=== PATIENT | female | born 1990 | race African-American/Black ===

== ENCOUNTER 2022-06-07 08:54 | Emergency (ER) | payer SELFPAY ==
[2022-06-07 09:37] LABS: #Basophils 0.1 thou/uL (0.0-0.2); #Monocytes 0.3 thou/uL (0.11-0.59); #Neutrophils 2.9 thou/uL (1.40-6.50); %Basophils 1.1 % (0.0-1.0); %Eosinophils 0.9 % (0.0-10.0); %Lymphocytes 36.9 % (21.0-51.0); %Monocytes 5.5 % (0.0-10.0); %Neutrophils 55.7 % (42.0-75.0); Hemoglobin 12.3 g/dL (12.0-16.0); Mean Corpuscular HGB CONC 31.6 g/dL (32.0-36.0); Mean Corpuscular Hemoglobin 27.5 pg (27.0-31.0); Mean Corpuscular Volume 86.9 fl (78.0-98.0); Platelet Count 290 thou/uL (130-400); RBC Distribution Width 14.5 % (11.5-14.5); Red Blood Cell (RBC) Count 4.48 mill/uL (4.20-5.40); White Blood Cell (WBC) Count 5.3 thou/uL (4.8-10.8)
[2022-06-07 10:03] LABS: ALT (SGPT) 15 U/L (8-55); AST (SGOT) 17 U/L (5-34); Albumin 4.1 g/dL (3.5-5.0); Alkaline Phosphatase 117 U/L (40-110); Anion Gap 9 mmol/L (10-20); BUN (Urea Nitrogen) 16 mg/dL (7.0-18.7); Bilirubin, Total 0.3 mg/dL (0.2-1.2); Calc. Creatinine Clearance 0 mL/min (70-130); Calcium 9.4 mg/dL (7.8-10.44); Carbon Dioxide 24 mmol/L (22-29); Chloride 106 mmol/L (98-107); Estimated GFR 99; Globulin 2.8 g/dL (2.4-3.5); Glucose 92 mg/dL (70-105); Lipase 121 U/L (8-78); Protein, Total 6.9 g/dL (6.0-8.3); Sodium 135 mmol/L (136-145)
[2022-06-07 11:25] LABS: BHCG - Serum Negative (NEGATIVE); Pregs Control Background? CLEAR/WHITE (CLR/WHITE); Pregs Control Bar Appear? YES (CONTROL BAR)
== END 2022-06-07 12:00 | disposition home or self-care (01) ==
LOC: ERS 08:54
DX: R07.89 Other chest pain (principal); F17.210 Nicotine dependence, cigarettes, uncomplicated
CPT/HCPCS: 36415; 71045; 80053; 83690; 84484; 84703; 85025; 85379; 93005; 94760

== ENCOUNTER 2022-10-04 07:42 | Emergency (ER) | payer OTHER, SELFPAY ==
[2022-10-04 08:42] LABS: SARS-CoV-2 NAA Rapid Test Not Detected (NotDetected)
== END 2022-10-04 09:11 | disposition home or self-care (01) ==
LOC: ERS 07:42
DX: J06.9 Acute upper respiratory infection, unspecified (principal); J01.90 Acute sinusitis, unspecified; F17.210 Nicotine dependence, cigarettes, uncomplicated; Z20.822 Contact with and (suspected) exposure to COVID-19
CPT/HCPCS: 87081; 87430; 99283

== ENCOUNTER 2023-06-05 09:44 | Observation (INO) | payer SELFPAY ==
[2023-06-05 10:40] LABS: #Monocytes 0.4 thou/uL (0.11-0.59); #Neutrophils 2.4 thou/uL (1.40-6.50); %Basophils 0.9 % (0.0-1.0); %Lymphocytes 32.2 % (21.0-51.0); %Neutrophils 56.4 % (42.0-75.0); Hematocrit 41.6 % (36.0-47.0); Hemoglobin 13.6 g/dL (12.0-16.0); Mean Corpuscular HGB CONC 32.7 g/dL (32.0-36.0); Mean Corpuscular Hemoglobin 27.6 pg (27.0-31.0); Mean Corpuscular Volume 84.4 fl (78.0-98.0); Mean Platelet Volume 9.5 fL (7.4-10.4); Platelet Count 255 10x3/uL (130-400); RBC Distribution Width 15.4 % (11.5-14.5); Red Blood Cell (RBC) Count 4.93 mill/uL (4.20-5.40); White Blood Cell (WBC) Count 4.3 10x3/uL (4.8-10.8)
[2023-06-05] MEDS ORDERED: Ketorolac Tromethamine 30 MG/ML VIAL ONE (10:44)
[2023-06-05] MEDS ORDERED: Morphine 4 MG/ML VIAL ONE (10:44)
[2023-06-05 11:13] LABS: ALT (SGPT) 27 U/L (8-55); AST (SGOT) 27 U/L (5-34); Albumin 4.6 g/dL (3.5-5.0); Alkaline Phosphatase 115 U/L (40-110); Anion Gap 17 mmol/L (10-20); BUN (Urea Nitrogen) 11 mg/dL (7.0-18.7); Bilirubin, Total Less than 0.2 mg/dL (0.2-1.2); CK (CPK) 95 U/L (29-168); Calc. Creatinine Clearance 0 mL/min (70-130); Calcium 9.6 mg/dL (7.8-10.44); Carbon Dioxide 16 mmol/L (22-29); Chloride 111 mmol/L (98-107); Estimated GFR 116; Globulin 2.9 g/dL (2.4-3.5); Glucose 89 mg/dL (70-105); Potassium 4.4 mmol/L (3.5-5.1); Protein, Total 7.5 g/dL (6.0-8.3); Sodium 140 mmol/L (136-145)
[2023-06-05 11:45] LABS: Acetaminophen Less than 10 mcg/mL (10.0-30.0); Alcohol Less than 10.0 mg/dL (Less than 10); Salicylate Less than 8.0 mg/dL (15.0-30.0)
[2023-06-05] MEDS ORDERED: levETIRAcetam 500 MG/5 ML VIAL ONE (11:52)
[2023-06-05] MEDS ORDERED: LORazepam 2 MG/ML SYR.(CARPUJECT) ONE (11:52)
[2023-06-05] MEDS ORDERED: Ondansetron PF 4 MG/2 ML Vial IVP PRN (13:14)
[2023-06-05] MEDS ORDERED: Senokot S 8.6-50 MG TAB PO PRN (13:14)
[2023-06-05] MEDS ORDERED: Calcium Carbonate 500 MG ChewTAB PO PRN (13:14)
[2023-06-05] MEDS ORDERED: Lorazepam 2 MG/ML VIAL SLOW IVP PRN (13:44)
[2023-06-05] MEDS ORDERED: Multivit, Therapeutic 1 TAB PO SCH (14:00)
[2023-06-05] MEDS ORDERED: Folic Acid 1 MG TAB PO SCH (14:00)
[2023-06-05 14:22] LABS: Lactic Acid 0.9 mmol/L (0.5-2.2)
[2023-06-05 14:53] LABS: Amphetamine Not Detected (NotDetected); Barbiturates Screen Not Detected (NotDetected); Benzodiazepine Screen Not Detected (NotDetected); Cocaine Metabolite Screen Not Detected (NotDetected); Methadone Not Detected (NotDetected); Methamphetamine Not Detected (NotDetected); Opiate Screen Detected (NotDetected); Oxycodone Screen Not Detected (NotDetected); Phencyclidine (PCP) Not Detected (NotDetected); THC/Cannabinoid Screen Detected (NotDetected); Tricyclic Screen Not Detected (NotDetected)
[2023-06-05 17:21] LABS: SARS-CoV-2 NAA Rapid Test DETECTED (NotDetected)
[2023-06-05 19:01] LABS: Syphilis Antibody Nonreactive (Nonreactive); Syphilis Antibody Index 0.03 S/CO (<1.00 Non-Reactive)
[2023-06-05] MEDS ORDERED: Thiamine HCl 200 MG/2 ML VIAL ONE (22:31)
[2023-06-05] MEDS ORDERED: Multivit, Therapeutic 1 TAB ONE (22:31)
[2023-06-05] MEDS ORDERED: Folic Acid 1 MG TAB ONE (22:31)
[2023-06-05] MEDS: Thiamine HCl 200 MG/2 ML VIAL SLOW IVP SCH (22:44)
[2023-06-05 22:45] VITALS: BMI 29.2
[2023-06-05] MEDS: Lorazepam 1 MG TAB PO PRN (23:39)
[2023-06-05] MEDS: Acetaminophen 325 MG TAB PO PRN (23:39)
[2023-06-06 05:07] LABS: Hemoglobin 11.8 g/dL (12.0-16.0); Mean Corpuscular HGB CONC 31.9 g/dL (32.0-36.0); Mean Corpuscular Hemoglobin 27.2 pg (27.0-31.0); Mean Corpuscular Volume 85.3 fl (78.0-98.0); Mean Platelet Volume 9.6 fL (7.4-10.4); Platelet Count 256 10x3/uL (130-400); RBC Distribution Width 15.6 % (11.5-14.5); Red Blood Cell (RBC) Count 4.34 mill/uL (4.20-5.40)
[2023-06-06 05:33] LABS: Delete Auto Diff?? YES; Manual Diff?? YES
[2023-06-06 05:37] LABS: ALT (SGPT) 20 U/L (8-55); AST (SGOT) 23 U/L (5-34); Albumin 4.1 g/dL (3.5-5.0); Alkaline Phosphatase 92 U/L (40-110); Anion Gap 13 mmol/L (10-20); BUN (Urea Nitrogen) 11 mg/dL (7.0-18.7); Bilirubin, Total Less than 0.2 mg/dL (0.2-1.2); Calc. Creatinine Clearance 119 mL/min (70-130); Calcium 8.9 mg/dL (7.8-10.44); Carbon Dioxide 21 mmol/L (22-29); Chloride 108 mmol/L (98-107); Estimated GFR 112; Globulin 2.2 g/dL (2.4-3.5); Glucose 91 mg/dL (70-105); Potassium 3.8 mmol/L (3.5-5.1); Protein, Total 6.3 g/dL (6.0-8.3); Sodium 138 mmol/L (136-145)
[2023-06-06 06:35] LABS: Anisocytosis SLIGHT = 6-15 cells HPF (0-5); Band 8 % (5-11); CellaVision Operator ID LAB.JMM; Large Platelets 6.9 % (0-5); Lymphocytes 48 % (21-51); Monocytes 13 % (0-10); Neutrophil 28 % (42-75); Platelet Adequacy Comment Platelets Normal; Polychromasia SLIGHT = 2-3 cells HPF (0-2); Reactive Lymphocytes 2 % (0-10); Smudge Cells 21.6 %; Total Cell Count 102
[2023-06-06] MEDS: Multivit, Therapeutic 1 TAB PO SCH (08:41)
[2023-06-06] MEDS: Folic Acid 1 MG TAB PO SCH (08:41)
[2023-06-06] MEDS: Lorazepam 1 MG TAB PO PRN (08:41)
[2023-06-06] MEDS ORDERED: Diazepam 10 MG/2 ML SYRINGE IVP SCH (09:00)
[2023-06-06 09:33] LABS: Magnesium 1.8 mg/dL (1.6-2.6); Phosphorus 3.1 mg/dL (2.3-4.7)
[2023-06-06] MEDS: Lactated Ringer's 1,000 ML IV SCH ×2 (09:39→20:27)
[2023-06-06] MEDS ORDERED: Magnesium 2 GM/50 ML(in water) 2 GM in Premix 1 BAG IVPB SCH (11:00)
[2023-06-06] MEDS: Thiamine HCl 200 MG/2 ML VIAL SLOW IVP SCH (13:01)
[2023-06-06] MEDS: Acetaminophen 325 MG TAB PO PRN (17:41)
[2023-06-06] MEDS ORDERED: Morphine 4 MG/ML VIAL SLOW IVP SCH (18:30)
[2023-06-06] MEDS: levETIRAcetam 500 MG TAB PO SCH (20:27)
[2023-06-07] MEDS: Acetaminophen 325 MG TAB PO PRN ×2 (03:17→08:08)
[2023-06-07] MEDS: Lorazepam 1 MG TAB PO PRN ×3 (03:17→08:13)
[2023-06-07 05:06] LABS: Hematocrit 37.4 % (36.0-47.0); Mean Corpuscular HGB CONC 32.1 g/dL (32.0-36.0); Mean Corpuscular Hemoglobin 27.3 pg (27.0-31.0); Mean Corpuscular Volume 85.2 fl (78.0-98.0); Mean Platelet Volume 9.3 fL (7.4-10.4); Platelet Count 280 10x3/uL (130-400); RBC Distribution Width 15.4 % (11.5-14.5); Red Blood Cell (RBC) Count 4.39 mill/uL (4.20-5.40); White Blood Cell (WBC) Count 3.4 10x3/uL (4.8-10.8)
[2023-06-07 05:25] LABS: Delete Auto Diff?? YES; Manual Diff?? YES
[2023-06-07 05:56] LABS: CellaVision Operator ID lab.abc; Lymphocytes 46 % (21-51); Monocytes 13 % (0-10); Neutrophil 37 % (42-75); Platelet Adequacy Comment Platelets Normal; RBC Morphology Within Normal Limits; Reactive Lymphocytes 3 % (0-10); Smudge Cells 11.8 %; Total Cell Count 102
[2023-06-07 09:29] LABS: ALT (SGPT) 23 U/L (8-55); AST (SGOT) 20 U/L (5-34); Albumin 4.4 g/dL (3.5-5.0); Alkaline Phosphatase 96 U/L (40-110); Anion Gap 12 mmol/L (10-20); BUN (Urea Nitrogen) 7 mg/dL (7.0-18.7); Bilirubin, Total 0.2 mg/dL (0.2-1.2); CK (CPK) 114 U/L (29-168); Calc. Creatinine Clearance 122 mL/min (70-130); Calcium 9.4 mg/dL (7.8-10.44); Carbon Dioxide 25 mmol/L (22-29); Chloride 105 mmol/L (98-107); Estimated GFR 116; Globulin 2.4 g/dL (2.4-3.5); Glucose 94 mg/dL (70-105); Phosphorus 3.3 mg/dL (2.3-4.7); Potassium 4.1 mmol/L (3.5-5.1); Protein, Total 6.8 g/dL (6.0-8.3); Sodium 138 mmol/L (136-145)
[2023-06-07 13:20] VITALS: BP 119/67; TEMP 97.7
[2023-06-07] MEDS ORDERED: Lorazepam 1 MG TAB PO PRN (13:43)
[2023-06-07] MEDS: Thiamine HCl 200 MG/2 ML VIAL SLOW IVP SCH (13:59)
[2023-06-07] MEDS: Multivit, Therapeutic 1 TAB PO SCH (14:00)
[2023-06-07] MEDS: Folic Acid 1 MG TAB PO SCH (14:00)
[2023-06-07] MEDS: levETIRAcetam 500 MG TAB PO SCH (14:02)
[2023-06-08] MEDS ORDERED: Lorazepam 0.5 MG TAB PO PRN (13:43)
[2023-06-08] MEDS ORDERED: Thiamine 100 MG TAB PO SCH (13:45)
== END 2023-06-07 15:18 | disposition home or self-care (01) ==
LOC: SUATTDRO 09:44 → ERS 09:44 → ERHOLD 13:17 → 2SE 22:57
PROVIDERS: ADMIT Internal Medicine; ATTEND Internal Medicine
DX: U07.1 COVID-19 (principal); M62.838 Other muscle spasm; F12.10 Cannabis abuse, uncomplicated; F32.A Depression, unspecified
CPT/HCPCS: 36415; 70450; 80053; 80306; 80307; 82550; 83605; 83615; 83735; 84100; 84145; 84146; 84436; 84443; 85025; 86140; 86780; 93005; 96361; 96365; 96375; 96376; G0378; J1885; J1953; J2060; J2270; J2405; J3360; J3411; J3475; J7120